=== PATIENT | female | born 1970 | race Hispanic/Latino ===

== ENCOUNTER → 2024-02-15 | Day surgery (SDC) | payer BC ==
[~2024-02-15] MED LIST: ESTRADIOL1 MG PO; HYDROCORTISONE20 MG PO; HYOSCYAMINE SULFATE 0.5 MG/ML INJ ONE; PROGESTERONE100 MG PO; PROPOFOL IV EMULSION 50 ML IV ONE
[2024-02-15] MEDS: LACTATED RINGER'S 1,000 ML ONE (07:22)
[2024-02-15 08:12] VITALS: TEMP 97
[2024-02-15 08:40] VITALS: BP 110/81; PULSE 83; RESP 18; O2SAT 97
== END | disposition home or self-care (01) ==
LOC: OR 06:34
PROVIDERS: ATTEND Internal Medicine Gastroenterology
DX: Z12.11 Encounter for screening for malignant neoplasm of colon (principal); K64.8 Other hemorrhoids; R00.1 Bradycardia, unspecified; Z01.810 Encounter for preprocedural cardiovascular examination
CPT/HCPCS: 45378; 93005; J1980; J2704; J7121